=== PATIENT | female | born 1960 | race Caucasian/White ===

== ENCOUNTER → 2020-04-16 | Outpatient (CLI) | payer BC ==
[~2020-04-16] MED LIST: CHOL500021 PO; CLON0.5T4 PO; FOLI0.8C PO; HYDR12.572 PO; PARO40TA3 PO
== END ==
LOC: LAB 10:10
PROVIDERS: ATTEND Registered Nurse
DX: Z20.828 Contact with and (suspected) exposure to other viral communicable diseases (principal)
CPT/HCPCS: U0003-CS

== ENCOUNTER → 2020-04-20 | Day surgery (SDC) | payer BC ==
[~2020-04-20] MED LIST changes: +BALANCED SALT IRRIG OPHTH SOLN 15 ML BOTTLE. IRR ONE; +CATARACT OPHTH GEL 0.5 ML SYRINGE. OD ONE; +CHONDROIT-SOD-HYALURONATE KIT. OD ONE; +CHONDROIT-SOD-HYALURONATE KIT. OD SCH; +CHONDROIT-SOD-HYALURONATE KIT. ONE; +EPINEPHrine AMPULE 0.5 MG in BALANCED SALT IRRIG SOLN PLUS 500 ML IO ONE; +ERYTHROMYCIN 0.5% OPHTH OINTMENT 1GM TUBE. OD ONE; +HYALURONIDASE 75UNITS in LIDOCAINE 2% PF OPHTH 10 ML SYRINGE. OD ONE; +HYALURONIDASE 75UNITS in LIDOCAINE 2% PF OPHTH 10 ML SYRINGE. ONE; +IPRATRPIUM/ALBUTEROL 0.5/2.5MG 3 ML NEBU. NEB PRN; +IV RINGERS SOLUTION,LACTATED 1,000 ML IV SCH; +KETOROLAC TROMETHAMINE 0.5% OPHTH SOLUTION BOTTLE. OD SCH; +KETOROLAC TROMETHAMINE 0.5% OPHTH SOLUTION BOTTLE. ONE; +MIDAZOLAM HCL PF 2 MG/2 ML VIAL. IV ONE; +MOXIFLOXACIN 0.5% OPHTH SOLUTION 3ML BOTTLE. OD SCH; +ONDANSETRON PF 4 MG/2 ML VIAL. IV PRN; +POVIDONE-IODINE 5% OPHTH SOLUTION 30ML BOTTLE. OD ONE; +PROPOFOL 10,000 MCG/ML (20ML) VIAL IV ONE; +TETRACAINE 0.5% OPHTH SOLUTION 4ML BOTTLE. OD ONE; +TETRACAINE 0.5% OPHTH SOLUTION 4ML BOTTLE. OU ONE; +prednisoLONE ACETATE 1% OPHTH SUSPENSION 5ML BOTTLE. OD SCH; +prednisoLONE ACETATE 1% OPHTH SUSPENSION 5ML BOTTLE. ONE
[2020-04-20] MEDS: MOXIFLOXACIN 0.5% OPHTH SOLUTION 3ML BOTTLE. OD SCH ×3 (07:38→07:50)
--- NOTE | 2020-04-20 08:46 | PDOC4 ---
Phaco IOL/HDK/OD Date of Procedure: Apr 20, 2020 Preoperative Diagnosis: 1. Senile Cataract, Right Eye 2, Glaucoma, Right Eye Postoperative Diagnosis: 1. Senile Cataract, Right Eye 2. Glaucoma, Right Eye Anesthesia: Local (Block) with monitored anesthesia care Surgeon: Sindi Issa D.O. Procedure: 1. Right Phacoemulsification with Intraocular Lens Implant 2. HDK Goniotomy, Right Eye Findings: 1. Senile Cataract 2. Glaucoma Indications: Worsening vision interfering with patient's lifestyle with mild to moderate glaucoma on pressure lowering medication. Narrative: After discussing the risks, complications and alternatives, including but not limited to loss of vision, infection, bleeding, swelling, anesthetic reaction, capsule rupture with vitreous loss, etc., the patient was given a peribulbar block under mild IV sedation and cardiac monitoring. Pressure was applied to the eye for approximately 10 minutes. The patient was transferred to the main operating room and prepped and draped in the usual sterile fashion and positioned under the microscope. A lid speculum was placed. A side port incision was made. A 2.4 mm clear corneal incision was made. Viscoelastic was injected into the eye. A continuous tear capsulorrhexis was performed, then hydrodissection was accomplished with balanced salt solution. The phacoemulsification needle was placed in the eye and the nucleus was emulsified. The remaining cortical material was removed with the irrigation and aspiration apparatus. The capsule was polished as needed. The posterior capsule was noted to be clean and intact. Viscoelastic was injected into the eye inflating the capsular bag. An intraocular lens was injected into the eye, unfolding as desired and was positioned in the capsular bag. Viscoelastic was injected onto the surface of the cornea. The patient's head was positioned 30 away from the surgeon and the microscope was tilted 30 toward the surgeon. The surgical goniolens was placed on the corneal surface and the drainage angle was visualized. The HDK blade was inserted into the anterior chamber and in a savage and meet fashion the trabecular meshwork was unroofed for about 3 clock hours. A small amount of hemorrhage was noted but stopped with the viscoelastic tamponade. The microscope and patient's head were then returned to the typical positions.The viscoelastic was aspirated from the eye. The wound edges were hydrated with balanced salt solution and there were no leaks. Viscoelastic was injected over the limbal incisions. Antibiotic and steroid were placed on the eye. The lid speculum was removed, the eye patched shut and a Catalan shield applied. There were no complications and the patient was taken to the PACU in good condition. SINDI ISSA DO Apr 20, 2020 08:46
[2020-04-20 09:05] VITALS: BP 121/84
== END | disposition home or self-care (01) ==
LOC: SURG 07:09
PROVIDERS: ATTEND Ophthalmology
DX: H25.11 Age-related nuclear cataract, right eye (principal); H40.89 Other specified glaucoma; F41.9 Anxiety disorder, unspecified; R06.83 Snoring; G40.909 Epilepsy, unspecified, not intractable, without status epilepticus; I10 Essential (primary) hypertension; Z98.890 Other specified postprocedural states; Z79.899 Other long term (current) drug therapy; Z88.1 Allergy status to other antibiotic agents
CPT/HCPCS: 65820; 66984; J0171; J2704; V2632